=== PATIENT | female | born 1990 | race Caucasian/White ===

== ENCOUNTER 2017-03-14 08:32 | Emergency (ER) | payer OTHER ==
[2017-03-14] MEDS ORDERED: IBUPROFEN 600 MG TAB PO ONE (08:38)
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
[2017-03-14 08:42] VITALS: RESP 16
[2017-03-14 11:00] VITALS: BP 125/78; PULSE 76; TEMP 97.9; O2SAT 97
== END 2017-03-14 11:37 | disposition home or self-care (01) ==
LOC: EDBD → EDUNIT#
DX: S49.92XA Unspecified injury of left shoulder and upper arm, initial encounter (principal); S06.0X0A Concussion without loss of consciousness, initial encounter; V19.9XXA Pedal cyclist (driver) (passenger) injured in unspecified traffic accident, initial encounter; Y92.410 Unspecified street and highway as the place of occurrence of the external cause; Y99.8 Other external cause status; Y93.55 Activity, bike riding